=== PATIENT | female | born 1975 | race Asian ===

== ENCOUNTER 2021-05-02 13:30 | Outpatient (REF) | payer BC, SELFPAY | END 2021-05-02 13:31 | disposition home or self-care (01) | LOC: HO.LAB 13:30 | PROVIDERS: PCP Neuromusculoskeletal Medicine, Sports Medicine; Visit Provider Internal Medicine | DX: Z20.822 Contact with and (suspected) exposure to COVID-19 (principal) | CPT/HCPCS: C9803; U0003; U0005 ==